=== PATIENT | male | born 1975 | race Caucasian/White ===

== ENCOUNTER 2017-07-29 15:50 | Emergency (ER) | payer OTHER, BC ==
[2017-07-29 15:59] VITALS: BP 84/56; PULSE 87; RESP 16; TEMP 98.6; O2SAT 98
--- NOTE | 2017-07-29 16:21 | EDPHY ---
H & P Stated Complaint: R eye red/bruising on eyelid,no inj,on coumadin Time Seen by Provider: 07/29/17 16:02 HPI/ROS: Chief Complaint: Subconjunctival hemorrhage HPI: Patient's to the ED with complaints of a right subconjunctival hemorrhage that developed several days ago. The patient denies any history of fall or trauma. He denies any acute vision loss. The patient is currently anticoagulated for a aortic valve replacement. The patient reports his INR was checked 5 days ago and was 3.2. The patient denies any complaints of an acute headache. REVIEW OF SYSTEMS: Neuro: no headache, numbness, weakness Ocular: As above Skin: no abrasion or lacerations Source: Patient Exam Limitations: No limitations - Personal History Current Tetanus Diphtheria and Acellular Pertussis (TDAP): Yes - Medical/Surgical History Other PMH: Mechanical aortic valve. CRF. dialysis 3 days/wk - Social History Smoking Status: Never smoked - Physical Exam Exam: Visual Acuity: noted from Nurse's notes. Pupils: equal round and reactive to light EOMI Skin: no proptosis, no periorbital erythema or swelling, no vesicles Conjunctivae: Subconjunctival hemorrhages noted Anterior chamber: normal, no hyphema or hypopyon Constitutional: Initial Vital Signs Temperature (C) 37 C 07/29/17 15:52 Heart Rate 87 07/29/17 15:52 Respiratory Rate 16 07/29/17 15:52 Blood Pressure 84/56 L 07/29/17 15:52 O2 Sat (%) 98 07/29/17 15:52 O2 Delivery Mode Room Air Allergies/Adverse Reactions: prednisone Allergy (Intermediate, Verified 07/29/17 16:00) swelling lisinopril Allergy (Mild, Verified 07/29/17 16:00) GI upset Home Medications: Medication Instructions Recorded Cinacalcet HCl [Sensipar] 30 mg PO 07/29/17 GABAPENTIN 400 mg PO 07/29/17 Nebivolol HCl [Bystolic 5 mg (*)] 5 mg PO DAILY 07/29/17 Warfarin Sodium [Coumadin 7.5MG 7.5 mg PO DAILY16 07/29/17 (*)] rOPINIRole HCL [Requip 2mg (*)] 2 mg PO 07/29/17 Medical Decision Making ED Course/Re-evaluation: The patient presents to the ED with a subconjunctival hemorrhage. He needs to maintain his current level anticoagulation secondary to his aortic valve replacement. The patient has intact visual acuity. The patient has no evidence of a hyphema, retro-orbital hematoma or acute headache clinically. The patient will be referred to our on-call autographer for any visual symptoms he should developed. Departure - Departure Disposition: Home, Routine, Self-Care Clinical Impression: Subconjunctival hemorrhage of right eye, H/O aortic valve replacement Condition: Good Instructions: Subconjunctival Hemorrhage (ED) Additional Instructions: 1. Return to the ED for severe eye pain, markedly worsening visual acuity, severe headache or other concerns. 2. Continue Coumadin as prescribed for your aortic valve replacement. 3. Please follow up with the autographer you have been referred to for any ongoing symptoms or other concerns. Referrals: José Liu MD [Medical Doctor] - As per Instructions
== END 2017-07-29 16:28 | disposition home or self-care (01) ==
LOC: EDBD 15:50
DX: H11.31 Conjunctival hemorrhage, right eye (principal); N18.9 Chronic kidney disease, unspecified; Z79.01 Long term (current) use of anticoagulants; Z95.2 Presence of prosthetic heart valve

== ENCOUNTER 2017-09-11 21:29 | Emergency (ER) | payer OTHER, BC ==
[2017-09-11 21:36] VITALS: RESP 18; TEMP 98.1
[2017-09-11] MEDS ORDERED: HYDROCODONE/APAP 5/325 TAB PO ONE (22:08)
--- NOTE | 2017-09-11 22:12 | EDPHY ---
H & P Stated Complaint: KNEE POPPED WHILE TWISTING Time Seen by Provider: 09/11/17 21:58 HPI/ROS: HPI: The patient presents with left knee pain which began at about 2:00 p.m. when he was getting off of an elevator. He twisted his body to the right and began walking but felt that his left knee got stuck. He had the acute onset of achy lateral knee pain which has been constant ever since. It is somewhat improved with ice and Tylenol that he took home. He cannot fully extend his knee without having pain. He is able to flex his knee. He does not have any effusion or warmth to the knee. He has no prior history of similar. He is able to bear weight. REVIEW OF SYSTEMS Musculoskeletal: No back pain. Skin: No rashes. Neurological: No headache. PMHx: History of aortic valve repair, on Coumadin, end-stage renal disease with 3 day a week hemodialysis TRAUMA PHYSICAL General Appearance: Alert, no distress Head: Atraumatic Neck: Non- tender, trachea midline Respiratory: Breathing comfortably Cardiovascular: Regular rate and rhythm Skin: No lacerations, No abrasion Extremities: Left knee with mild tenderness laterally to palpation, there is no laxity of the joint, there is extension to 160 in flexion is full, there is some patellar apprehension Neurological: ,normal motor function with 5/5 strength in all 4 extremities, normal sensory exam Source: Patient Exam Limitations: No limitations - Personal History Current Tetanus Diphtheria and Acellular Pertussis (TDAP): Yes Tetanus Vaccine Date: LESS THAN 10 YEARS - Medical/Surgical History Hx Asthma: No Hx Chronic Respiratory Disease: No Hx Diabetes: No Hx Cardiac Disease: Yes Hx Renal Disease: Yes Hx Cirrhosis: No Hx Alcoholism: No Hx HIV/AIDS: No Hx Splenectomy or Spleen Trauma: No Other PMH: Mechanical aortic valve. CRF. dialysis 3 days/wk - Social History Smoking Status: Never smoked Constitutional: Initial Vital Signs Temperature (C) 36.7 C 09/11/17 21:34 Heart Rate 77 09/11/17 21:34 Respiratory Rate 18 09/11/17 21:34 Blood Pressure 115/72 09/11/17 21:34 O2 Sat (%) 97 09/11/17 21:34 O2 Delivery Mode Room Air Allergies/Adverse Reactions: prednisone Allergy (Intermediate, Verified 11/19/17 16:00) swelling lisinopril Allergy (Mild, Verified 07/29/17 16:00) GI upset Home Medications: Medication Instructions Recorded Cinacalcet HCl [Sensipar] 30 mg PO 07/29/17 GABAPENTIN 400 mg PO 07/29/17 Nebivolol HCl [Bystolic 5 mg (*)] 5 mg PO DAILY 07/29/17 Warfarin Sodium [Coumadin 7.5MG 7.5 mg PO DAILY16 07/29/17 (*)] rOPINIRole HCL [Requip 2mg (*)] 2 mg PO 07/29/17 Prilosec 09/11/17 morphINE IR [morphINE IR 15 mg (*)] 15 mg PO Q4H PRN #10 tab 09/11/17 Medical Decision Making - Diagnostics Imaging Results: Imaging Impressions Knee X-Ray 09/11/17 22:07 Impression: Avulsion injuries of patellar tendon of uncertain acute significance. Correlation with site of tenderness would be useful. Imaging: I viewed and interpreted images myself Differential Diagnosis: 42-year-old male with no medical problems presents with unilateral knee pain after twisting his knee several hours ago. He has been able to bear weight, though this is painful. He has limited range of motion, though no joint effusion. Differential diagnosis includes meniscal tear, ligamentous injury, less likely fracture. Emergency department, patient was given Lockhart for pain. X-rays were obtained that demonstrated no fracture. Radiologist suspected possible patellar tendon injury. However, patient has no tenderness in this region, so I would do not know if this is the cause of his pain, however feel other diagnoses are more likely. Will issue him a knee immobilizer. He is given information for orthopedic follow-up locally though he does usually live in [place]. He will be here for few weeks so he can follow up here. - Data Points Medications Given: Discontinued Medications Hydrocodone Bitart/Acetaminophen (Lockhart 5/325) 2 tab PO EDNOW ONE Stop: 09/11/17 22:09 Last Admin: 09/11/17 22:11 Dose: 2 tab Departure - Departure Disposition: Home, Routine, Self-Care Clinical Impression: Left knee pain Condition: Good Instructions: Knee Pain (ED) Additional Instructions: It seems that you likely have torn your meniscus. Because of this, I would like for you to follow up with Orthopedics. I have given you the phone number below for our local orthopedist. However you may choose to follow up with 1 locally. In the meantime, you should use rest, ice, elevation, Tylenol as needed for pain. You should take Tylenol 650 mg every 6 hr. If the pain is severe after that, then you can take the pain medicine I have prescribed. Referrals: Patrice Cannon MD [Medical Doctor] - As per Instructions Prescriptions: morphINE IR [morphINE IR 15 mg (*)] 15 mg PO Q4H PRN #10 tab PRN Reason: Pain, Breakthrough
[2017-09-11 22:56] VITALS: BP 109/66; PULSE 75; O2SAT 94
== END 2017-09-11 22:52 | disposition home or self-care (01) ==
DX: S89.92XA Unspecified injury of left lower leg, initial encounter (principal); N18.9 Chronic kidney disease, unspecified; X50.9XXA Other and unspecified overexertion or strenuous movements or postures, initial encounter; Y92.89 Other specified places as the place of occurrence of the external cause; Y93.01 Activity, walking, marching and hiking
CPT/HCPCS: 73562; 99283; L1830